=== PATIENT | male | born 1980 | race African-American/Black ===

== ENCOUNTER 2017-09-27 13:07 | Emergency (ER) | payer MEDICAID ==
[~2017-09-27] VITALS: Ht 172.7 cm; Wt 102.0 kg
[2017-09-27 13:36] VITALS: BP 147/79
== END 2017-09-27 20:56 | disposition left against medical advice (07) ==
LOC: ER 14:10
DX: R11.10 Vomiting, unspecified (principal); R19.7 Diarrhea, unspecified; Z53.21 Procedure and treatment not carried out due to patient leaving prior to being seen by health care provider

== ENCOUNTER 2020-05-04 20:17 | Emergency (ER) | payer SELFPAY ==
[~2020-05-04] VITALS: Ht 175.3 cm; Wt 104.0 kg
[2020-05-04] MEDS ORDERED: KETOROLAC 30MG/ML VIAL IM ONE (20:45)
[2020-05-04] MEDS ORDERED: CYCLOBENZAPRINE 10MG TABLET PO ONE (20:45)
[2020-05-04 21:43] VITALS: BP 125/79
== END 2020-05-04 22:19 | disposition home or self-care (01) ==
LOC: ER 20:17
DX: S16.1XXA Strain of muscle, fascia and tendon at neck level, initial encounter (principal); V49.88XA Car occupant (driver) (passenger) injured in other specified transport accidents, initial encounter; Y93.89 Activity, other specified; Y92.89 Other specified places as the place of occurrence of the external cause; Y99.8 Other external cause status
CPT/HCPCS: 72125; 96372; 99284; J1885